=== PATIENT | female | born 1970 | race African-American/Black ===

== ENCOUNTER 2017-12-04 16:18 | Emergency (ER) | payer SELFPAY ==
[2017-12-04] MEDS ORDERED: HYDROcodone/Acetaminophen 10/325 mg Tablet ONE (16:37)
[2017-12-04] MEDS ORDERED: Ibuprofen 800 MG TAB ONE (16:38)
[2017-12-04 16:45] LABS: Bilirubin Negative (Negative); Blood, Urine Small (Negative); Clarity Cloudy (Clear); Glucose, Urine (Dipstick) Negative (Negative); Leukocyte Negative (Negative); Nitrite Positive (Negative); Protein, Urine (Dipstick) Trace mg/dL (Neg-Trace); Specific Gravity, Urine 1.025 (1.005-1.030); Urobilinogen 0.2 mg/dL (0.2-1.0)
[2017-12-04 16:51] LABS: Bacteria/HPF 4+ HPF (None Seen); Crystals/HPF None Seen HPF (Negative); Hyaline Casts/LPF NONE SEEN LPF (0-3 Hyaline); Other Casts/LPF None Seen LPF (0-3 Hyaline); Oval Fat Bodies/HPF None Seen HPF (None Seen); RBC/HPF 0-3 HPF (0-3); Renal Epithelial None Seen HPF (0-3); Sperm/HPF None Seen HPF (None Seen); Transitional Epithelial NONE SEEN HPF (0-3); Trichomonas/HPF None Seen HPF (None Seen); WBC/HPF 0-3 HPF (0-3); Yeast-All Forms None Seen HPF (None Seen)
[2017-12-04] MEDS ORDERED: Ciprofloxacin 500 MG TAB ONE (17:03)
== END 2017-12-04 17:10 | disposition home or self-care (01) ==
LOC: BURERS 16:18
DX: M54.5 Low back pain (principal); R82.71 Bacteriuria; I10 Essential (primary) hypertension; F17.210 Nicotine dependence, cigarettes, uncomplicated; Z79.899 Other long term (current) drug therapy; J45.909 Unspecified asthma, uncomplicated
CPT/HCPCS: 81003; 81015; 87077; 87086; 87186; 99283

== ENCOUNTER 2018-12-08 14:36 | Emergency (ER) | payer SELFPAY ==
[2018-12-08] MEDS ORDERED: Ketorolac Tromethamine 60 MG/2 ML VIAL ONE (14:54)
== END 2018-12-08 15:07 | disposition home or self-care (01) ==
LOC: BURERS 14:36
DX: M25.511 Pain in right shoulder (principal); I10 Essential (primary) hypertension; F17.210 Nicotine dependence, cigarettes, uncomplicated
CPT/HCPCS: 96372; J1885

== ENCOUNTER 2019-07-09 12:32 | Emergency (ER) | payer SELFPAY ==
[2019-07-09] MEDS ORDERED: Acetaminophen/Codeine 30-300mg Tablet ONE (12:53)
[2019-07-09] MEDS ORDERED: Ketorolac Tromethamine 60 MG/2 ML VIAL ONE (13:11)
--- NOTE | 2019-07-09 18:12 | RAD ---
LEFT WRIST THREE VIEWS: 07/09/19 No fracture was demonstrated. All bones appeared intact. IMPRESSION: No acute finding. POS: HOME
== END 2019-07-09 13:16 | disposition home or self-care (01) ==
LOC: BURERS 12:32 → EEVIPCON 12:32 → BURERS 13:16
DX: S63.502A Unspecified sprain of left wrist, initial encounter (principal); I10 Essential (primary) hypertension; F17.210 Nicotine dependence, cigarettes, uncomplicated; W20.8XXA Other cause of strike by thrown, projected or falling object, initial encounter
CPT/HCPCS: 29125; 96372; J1885

== ENCOUNTER 2019-12-19 16:11 | Emergency (ER) | payer SELFPAY ==
[2019-12-19] MEDS ORDERED: Acetaminophen 325 MG TAB ONE (16:33)
== END 2019-12-19 16:40 ==
LOC: BURERS 16:11
DX: M79.641 Pain in right hand (principal); I10 Essential (primary) hypertension; F17.210 Nicotine dependence, cigarettes, uncomplicated
CPT/HCPCS: 99283

== ENCOUNTER 2022-04-04 15:19 | Emergency (ER) | payer SELFPAY | END 2022-04-04 16:00 | disposition left against medical advice (07) | LOC: BURERS 15:19 | DX: R10.9 Unspecified abdominal pain (principal); K02.9 Dental caries, unspecified; R10.817 Generalized abdominal tenderness; I10 Essential (primary) hypertension; G47.30 Sleep apnea, unspecified; F17.210 Nicotine dependence, cigarettes, uncomplicated ==